=== PATIENT | female | born 2000 | race Caucasian/White ===

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

== ENCOUNTER → 2019-12-10 | Outpatient (CLI) | payer OTHER ==
[2019-12-10 12:03] LABS: HEMATOCRIT 39.9 % (37.0-47.0); MEAN CELL VOLUME 87.7 fl (81.0-99.0); MEAN CORPUSCULAR HGB 26.8 pg (27.0-31.0); MEAN CORPUSCULAR HGB CONC 30.6 g/dl (33.0-37.0); MEAN PLATELET VOLUME 10.4 fl (9.6-12.3); RED BLOOD COUNT 4.55 10*6/uL (4.10-5.10); WHITE BLOOD COUNT 8.4 10*3/uL (4.8-10.8)
[2019-12-10 12:50] LABS: ALBUMIN 3.5 gm/dl (3.1-4.5); ALKALINE PHOSPHATASE 107 U/L (45-117); BUN 12 mg/dl (7-24); CHLORIDE 109 mmol/L (98-107); CHOLESTEROL 152 mg/dL (<200); CREATININE 0.73 mg/dL (0.55-1.02); HDL CHOLESTEROL 44 mg/dl (40-60); LDL CHOLESTEROL 85 mg/dL (9-159); POTASSIUM 3.9 mmol/L (3.5-5.1); SGOT/AST 15 IU/L (3-35); SGPT/ALT 19 U/L (12-78); SODIUM 142 mmol/L (136-145); TOTAL PROTEIN 8.1 gm/dL (6.4-8.2); TRIGLYCERIDES 117 mg/dl (<150); VLDL CHOLESTEROL 23 mg/dL (6-40)
[2019-12-10 13:10] LABS: FREE T4 0.76 ng/dl (0.76-1.46)
== END | disposition home or self-care (01) ==
LOC: LAB 11:47
PROVIDERS: ATTEND Family Medicine
DX: Z13.220 Encounter for screening for lipoid disorders (principal); E03.9 Hypothyroidism, unspecified

== ENCOUNTER → 2019-12-13 | Outpatient (CLI) | payer OTHER ==
[2019-12-13 15:27] LABS: FREE T4 0.78 ng/dl (0.76-1.46); THYROID STIM HORMONE (HS) 16.7 uIU/ml (0.358-4.75)
[2019-12-14 08:08] LABS: THYROID PEROXIDASE (TPO) AB 220 IU/mL (0-34); TOTAL T3 (TT3) 105 ng/dL (71-180)
[2019-12-14 16:12] LABS: THYROGLOBULIN ANTIBODY <1.0 IU/mL (0.0-0.9)
== END | disposition home or self-care (01) ==
LOC: CT 12-10 13:00 → LAB 13:08
PROVIDERS: ATTEND Nurse Practitioner Family
DX: E04.9 Nontoxic goiter, unspecified (principal); R94.6 Abnormal results of thyroid function studies

== ENCOUNTER → 2019-12-17 | Outpatient (CLI) | payer OTHER | END | disposition home or self-care (01) | LOC: US 00:27 | PROVIDERS: ATTEND Nurse Practitioner Family | DX: E04.9 Nontoxic goiter, unspecified (principal); J45.909 Unspecified asthma, uncomplicated; R05 Cough ==

== ENCOUNTER → 2020-01-27 | Outpatient (CLI) | payer OTHER ==
[2020-01-27 12:42] LABS: FREE T4 1.03 ng/dl (0.76-1.46)
[2020-01-27 12:57] LABS: THYROID STIM HORMONE (HS) 8.36 uIU/ml (0.358-4.75)
[2020-01-28 06:10] LABS: HEPATITIS B SURFACE AG Negative (Negative)
[2020-01-28 19:10] LABS: MUMPS ANTIBODIES, IGG 14.5 AU/mL (Immune >10.9); RUBEOLA AB IGG 34.4 AU/mL (Immune >16.4); VARICELLA-ZOSTER IGG <135 index (Immune >165)
== END | disposition home or self-care (01) ==
LOC: LAB 11:26
PROVIDERS: ATTEND Family Medicine
DX: Z02.0 Encounter for examination for admission to educational institution (principal); E03.9 Hypothyroidism, unspecified

== ENCOUNTER 2024-07-02 16:16 | Emergency (ER) | payer OTHER ==
[~2024-07-02] VITALS: Ht 170.1 cm; Wt 90.7 kg
[2024-07-02] MEDS ORDERED: SODIUM CHLORIDE 0.9% 1,000 ML IV ONE (16:35)
[2024-07-02] MEDS ORDERED: Ketorolac Tromethamine 30 MG/ML VIAL IV ONE (16:40)
[2024-07-02 16:52] LABS: BASO % 0.3 % (0.0-1.0); EOS # 0.1 10*3/uL (0.0-0.4); EOS % 0.9 % (1.0-4.0); HEMATOCRIT 40.3 % (37.0-47.0); MEAN CELL VOLUME 89.8 fl (81.0-99.0); MEAN CORPUSCULAR HGB 29.2 pg (27.0-31.0); MEAN CORPUSCULAR HGB CONC 32.5 g/dl (33.0-37.0); MEAN PLATELET VOLUME 9.9 fl (9.6-12.3); MONO # 0.6 10*3/uL (0.1-1.0); MONO % 6.3 % (3.0-9.0); NEUT # 6.1 10*3/uL (2.3-7.9); NEUT % 63.8 % (47.0-73.0); PLATELET COUNT AUTOMATED 352 10*3/uL (130-400); RED BLOOD COUNT 4.49 10*6/uL (4.10-5.10); RED CELL DISTRI WIDTH 12.7 % (0-14.5); WHITE BLOOD COUNT 9.5 10*3/uL (4.8-10.8)
[2024-07-02 16:54] LABS: BILIRUBIN Negative (Negative); BLOOD 1+ (Negative); COLOR Yellow (Yellow); GLUCOSE Negative (Negative); KETONE Trace (Negative); LEUKO ESTERASE Negative (Negative); NITRITE Negative (Negative); PH 5.5 (4.5-8.0); SPECIFIC GRAVITY 1.025 (1.001-1.030); UROBILINOGEN 0.2 E.U./dl (0.0-1.0)
[2024-07-02 17:02] LABS: CLARITY Clear (Clear)
[2024-07-02 17:11] LABS: BACTERIA 1+; MUCOUS 2+
[2024-07-02 17:25] LABS: ALKALINE PHOSPHATASE 68 U/L (46-116); BUN 10 mg/dl (9-23); CHLORIDE 103 mmol/L (98-107); LIPASE 31 U/L (12-53); POTASSIUM 3.7 mmol/L (3.4-5.1); SGPT/ALT 15 U/L (5-49); TOTAL PROTEIN 7.9 gm/dL (6.0-8.0)
[2024-07-02] MEDS ORDERED: HYDROCODONE-AC1 EAC1 PO (17:53)
== END 2024-07-02 18:13 | disposition home or self-care (01) ==
LOC: ED 16:16
PROVIDERS: Physician Assistant Medical
DX: N20.0 Calculus of kidney (principal); Z79.899 Other long term (current) drug therapy; Z87.442 Personal history of urinary calculi; Z90.49 Acquired absence of other specified parts of digestive tract